=== PATIENT | female | born 1945 | race Caucasian/White ===

== ENCOUNTER 2022-06-07 09:57 | Outpatient (CLI) | payer MEDICARE, OTHER ==
--- NOTE | 2022-06-15 09:04 | Mammography Report ---
BILATERAL DIGITAL SCREENING MAMMOGRAM 3D/2D WITH EXAGGERATED CC: 06/07/2022 CLINICAL: Routine screening. Family history of breast cancer. Personal history of left breast cancer. No prior exams were available for comparison. There are scattered areas of fibroglandular density in both breasts (category b / 25%-50% glandular t issue). No significant masses, calcifications, or other findings are seen in either breast. IMPRESSION: NEGATIVE There is no mammographic evidence of malignancy. A 1 year screening mammogram is recommended. This exam was interpreted at Station ID: [id number]. NOTE: For mammograms, a report in lay terms will be sent to the patient. Approximately 15% of breast malignancies will not be visualized mammographically. In the management of a palpable breast mass, a negative mammogram must not discourage biopsy of a clinically suspicious lesion. Electronically Signed By: Gordon Carrasquillo M.D. aty/:06/15/2022 07:11:57 letter sent: No_Letter ACR BI-RADS Category 1: Negative 3341F PARENCHYMAL PATTERN: (A) - The breast(s) demonstrate(s) scattered fibroglandular densities. BI-RADS CATEGORY: (1) - 1 Mammogram [id number] 1 year screening LATERALITY: (B)
== END 2022-06-07 09:58 | disposition home or self-care (01) ==
LOC: DI.S 09:57
PROVIDERS: ATTEND Nurse Practitioner Family
DX: Z12.31 Encounter for screening mammogram for malignant neoplasm of breast (principal); Z80.3 Family history of malignant neoplasm of breast; Z85.3 Personal history of malignant neoplasm of breast

== ENCOUNTER 2022-09-11 10:40 | Emergency (ER) | payer MEDICARE, OTHER ==
[2022-09-11 11:14] LABS: BASOPHILS % (AUTO) 0.4 %; EOSINOPHILS % (AUTO) 0.4 %; HCT - HEMATOCRIT 37.7 % (37.0-47.0); HGB - HEMOGLOBIN 12.4 g/dL (12.0-16.0); LYMPHOCYTES # (AUTO) 2.4 10^3/uL (1.5-3.5); LYMPHOCYTES % (AUTO) 30.1 %; MEAN CORPUSCULAR HGB CONC 32.9 g/dL (32.0-36.0); MEAN CORPUSCULAR VOLUME 91.1 fL (81.0-99.0); MEAN PLATELET VOLUME 10.6 fL (7.9-10.8); MONOCYTES # (AUTO) 0.6 10^3/uL (0.0-1.0); MONOCYTES % (AUTO) 7.8 %; NEUTROPHILS # (AUTO) 4.8 10^3/uL (1.5-6.6); NEUTROPHILS % (AUTO) 61.2 %; PLT - PLATELET COUNT 248 10^3/uL (130-450); RED BLOOD COUNT 4.14 10^6/uL (4.20-5.40); RED CELL DISTRIBUTION WIDTH 14.8 % (12.0-15.0); WHITE BLOOD COUNT 7.9 x10^3/uL (4.8-10.8)
[2022-09-11 11:23] LABS: ALBUMIN 3.5 g/dL (3.2-5.5); ALBUMIN/GLOBULIN RATIO 0.7 (1.0-2.2); BILIRUBIN,TOTAL 0.6 mg/dL (0.2-1.0); CALCIUM 8.8 mg/dL (8.5-10.3); POTASSIUM 2.9 mmol/L (3.5-5.0); TOTAL PROTEIN 8.4 g/dL (6.7-8.2)
[2022-09-11] MEDS ORDERED: ONDANSETRON 4 MG/2 ML VIAL IVP STA (11:26)
[2022-09-11] MEDS ORDERED: HYDROmorphone 1 MG/ML CARPUJECT IVP STA (11:26)
[2022-09-11] MEDS ORDERED: SODIUM CHLORIDE 0.9% 1,000 ML IV STA (11:26)
--- NOTE | 2022-09-11 11:30 | ED Physician Documentation ---
History of Present Illness - Stated complaint Stated Complaint: RT LOWER ABD PX/NAUSEA - Chief complaint Chief Complaint: Abd Pain - Additonal information Additional information: 77-year-old female presents emergency department for evaluation of acute onset left lower quadrant abdominal pain that began at 730 this morning and woke her from sleep. It is sharp and constant. She reports that it radiates up and down her left side. She has constant stabbing proximal isms of pain. Some nausea and vomiting. She does report a history of chronic diarrhea which has been evaluated but no cause found. Nonbloody. Takes Lexapro only. No pertinent past surgical history. In the room she appears uncomfortable guarded and painful. I do note sinus rhythm on the monitor heart rate in the 60s. Normotensive. No fevers. Review of Systems Constitutional: denies: Fever Cardiac: reports: Reviewed and negative Respiratory: reports: Reviewed and negative GI: reports: Abdominal Pain, Nausea, Vomiting, Diarrhea : reports: Reviewed and negative Skin: reports: Reviewed and negative Musculoskeletal: reports: Reviewed and negative PD PAST MEDICAL HISTORY - Present Medications Home Medications: Ambulatory Orders Medication Instructions Recorded Confirmed Escitalopram Oxalate [Lexapro] 5 mg PO DAILY 09/11/22 09/11/22 Ibuprofen [Motrin] 600 mg PO Q6H PRN #30 tab 09/11/22 Potassium Bicarbonate 25 meq PO DAILY #3 tablet 09/11/22 [K-Effervescent] Tamsulosin HCl [Flomax] 0.4 mg PO DAILY #30 cap 09/11/22 oxyCODONE [Roxicodone] 5 mg PO BID PRN #10 tab 09/11/22 - Allergies Allergies/Adverse Reactions: Allergies Allergy/AdvReac Type Severity Reaction Status Date / Time codeine Allergy Unknown Verified 09/11/22 11:02 PD ED PE NORMAL - General General: Alert and oriented X 3, Well developed/nourished. No: No acute distress (Uncomfortable guarded and in pain) - Respiratory Respiratory: No respiratory distress - Abdomen Abdomen: Normal bowel sounds, Soft. No: Non tender (Focal tenderness with some guarding and rebound on the left lower quadrant of the abdomen.) - Back Back: No CVA TTP - Derm Derm: Normal color, Warm and dry, No rash - Extremities Extremities: No deformity - Neuro Neuro: Alert and oriented X 3 Eye Opening: Spontaneous Motor: Obeys Commands Verbal: Oriented GCS Score: 15 Results - Vitals Vitals: Vital Signs - 24 hr 09/11/22 09/11/22 09/11/22 10:59 12:40 12:50 Temperature 36.2 C L Heart Rate 67 70 Respiratory 30 H 24 Rate Blood Pressure 125/68 115/59 L O2 Saturation 100 85 L 100 If not protocol 2 : Oxygen Flow, liters/minute 09/11/22 13:27 Temperature Heart Rate 72 Respiratory 18 Rate Blood Pressure 101/60 O2 Saturation 99 If not protocol : Oxygen Flow, liters/minute Oxygen O2 Source Room air - Labs Labs: Laboratory Tests 09/11/22 09/11/22 09/11/22 11:07 11:07 13:09 WBC 7.9 RBC 4.14 L Hgb 12.4 Hct 37.7 MCV 91.1 MCH 30.0 MCHC 32.9 RDW 14.8 Plt Count 248 MPV 10.6 Neut # (Auto) 4.8 Lymph # (Auto) 2.4 Dickens # (Auto) 0.6 Eos # (Auto) 0.0 Baso # (Auto) 0.0 Absolute Nucleated RBC 0.00 Nucleated RBC % 0.0 Sodium 141 Potassium 2.9 L Chloride 102 Carbon Dioxide 27 Anion Gap 12.0 BUN 20 Creatinine 1.0 Estimated GFR (MDRD) 54 L Glucose 129 H Calcium 8.8 Total Bilirubin 0.6 AST 29 ALT 15 Alkaline Phosphatase 59 Total Protein 8.4 H Albumin 3.5 Globulin 4.9 H Albumin/Globulin Ratio 0.7 L Lipase 28 Urine Color LIGHT YELLOW Urine Clarity CLEAR Urine pH 6.5 Ur Specific Rosanky <=1.005 Urine Protein NEGATIVE Urine Glucose (UA) NEGATIVE Urine Ketones 15 H Urine Occult Blood TRACE-INTA Urine Nitrite NEGATIVE Urine Bilirubin NEGATIVE Urine Urobilinogen 0.2 (NORMAL) Ur Leukocyte Esterase NEGATIVE Ur Microscopic Review NOT INDICATED Urine Culture Comments NOT INDICATED - Rads (name of study) CT abd w Relevant Findings:: Final report received (Mild left hydronephrosis and subtle decreased enhancement of the left kidney suspicious for obstructive left kidney stone, definite kidney stone is not seen however possibly a stone at the left UVJ series 3 image 59. No other abnormality to explain left lower quadrant pain) PD Medical Decision Making - ED course Complexity details: reviewed results, re-evaluated patient, considered differential, d/w patient, d/w family ED course: 77-year-old female with acute left lower quadrant abdominal pain. I did obtain CBC electrolytes and UA. Most significant finding was that of mild hypokalemia with potassium of 2.9. She does have chronic and recurrent diarrhea. I suspect this is due to GI loss. Urinalysis showed no signs of infection. Subsequently CT of the abdomen was obtained to rule out renal/ureter colic as well as diverticulitis. CT scan shows some mild hydronephrosis with an obstructing left renal stone as well as likely a UVJ stone. Patient was administered initially a single dose of IV Dilaudid in the ER with minimal relief of pain. Following this I administered 15 mg of ketorolac IV with near full improvement and resolution of pain. I discussed the CT imaging findings with the patient and her daughter. We will replete the potassium with 3 days of potassium acetate taken at home. She will be started on Flomax. Recommend NSAID medication ibuprofen taken with food as well as as needed oxycodone. Recommend follow-up with Dr. Scot Smith urology. She will request referral from his clinic or Jewels arellano her PCP. The usual emergent return precautions for worsening symptoms was discussed Departure - Departure Disposition: 01 Home, Self Care Clinical Impression: Hypokalemia due to excessive gastrointestinal loss of potassium, LLQ abdominal pain, Calculus of ureterovesical junction (UVJ) Hydronephrosis Qualifiers: Hydronephrosis type: other Qualified Code(s): N13.39 - Other hydronephrosis Condition: Stable Instructions: ED Stone Renal W Colic Follow-Up: Jewels Arellano ARNP [Primary Care Provider] - Scot Smith MD [Provider Admit Priv/Credential] - Within 1 week Prescriptions: Tamsulosin HCl [Flomax] 0.4 mg PO DAILY #30 cap Potassium Bicarbonate [K-Effervescent] 25 meq PO DAILY #3 tablet Ibuprofen [Motrin] 600 mg PO Q6H PRN #30 tab PRN Reason: Pain oxyCODONE [Roxicodone] 5 mg PO BID PRN #10 tab PRN Reason: Pain >8 Comments: You are seen today in the emergency department because you developed sudden left lower quadrant abdominal pain. While here in the emergency department your labs did not show any worrisome findings with the exception of a mildly low potassium at 2.9. I have sent a prescription for some potassium bicarbonate to the [facility] in [place]. Your low potassium is most likely due to recurrent diarrhea. Please discuss this finding with your primary doctor. The CT scan shows that you have most likely a stone at the left UVJ junction. There is also a small obstructing left kidney stone that is causing a little bit of hydronephrosis. In order to help the kidney stone pass I am starting you on a medication called Flomax. Use this cautiously as it can make you dizzy. I also recommend that you drink a lot of water to help flush your kidneys and get the stones to pass. In general I recommend that you take ibuprofen 600 mg with food 2-3 times a day. For more severe pain I have written a prescription for a limited amount of oxycodone. Use this cautiously. It will make you dizzy, cause constipation and make you more prone to falls. It is important that you follow-up with urology for longer-term evaluation and management of these kidney stones. I have given you the name of Dr. Scot Smith, a [facility]rolog[facility]. You can call his office directly however they may require referral from Jewels arellano. I am prescribing a short course of narcotic pain medication for you. These are potentially dangerous and addictive medications that should be used carefully. These medications may constipate you. Take an vsam-xse-vbbyebe stool softener (docusate) twice daily with plenty of water while taking these medications. If you go 24 hours without a bowel movement, take mzxc-bub-vrhqjte miralax, per package instructions. Do not drink or drive while taking these medications. If you received narcotic or sedating medications while in the emergency department, do not drive for 24 hours. Store this medication in a safe, secure place and out of reach of children. It is a violation of federal law to give or sell this medication to another person or to use in a manner other than prescribed. The ED will not refill narcotic prescriptions, including prescriptions lost or stolen. To dispose of unwanted medications: 1. [facility] at [address] in [place] has a medication drop box. They accept prescription medications (in pill form) Tuesday through Tuesday 9:00 a.m. to 5:00 p.m. 2. [facility] accepts prescription medications (in pill form only) for disposal year round. Call for more information. 3. Contact the [facility] for the next [facility] sponsored prescription drug collection event. , [phone], or [phone]; Note that many narcotic pain relievers also contain Tylenol/acetaminophen. Please ensure that your total dose of acetaminophen from all sources does not exceed 3 g (3000 mg) per day.
[2022-09-11] MEDS ORDERED: KETOROLAC 15 MG/ML VIAL IVP STA (11:58)
[2022-09-11] MEDS ORDERED: iohexoL-300 100 ML VIAL IVP ONE (12:16)
--- NOTE | 2022-09-11 12:55 | CT Report ---
PROCEDURE: ABDOMEN/PELVIS W INDICATIONS: LLQ abd pain TECHNIQUE: After the administration of contrast, 5 mm thick sections acquired from the diaphragms to the symphys is. 5 mm thick coronal and sagittal reformats were acquired. For radiation dose reduction, the foll owing was used: automated exposure control, adjustment of mA and/or kV according to patient size. COMPARISON: None FINDINGS: Image quality: Excellent. Lung bases and heart: Unremarkable. Liver: No solid mass. 2 areas of flash arterial enhancement are likely THADs. Gallbladder and biliary tree: The gallbladder is normal. Spleen: No splenomegaly. Pancreas: No pancreatic ductal dilation. Adrenals: No adrenal nodule. Kidneys and ureters: The right kidney is normal. The left kidney demonstrates mild hydronephrosis. Th e ureter is difficult to follow due to the lack of intra-abdominal fat. There is a possible stone wit hin the distal ureter series 3 image 59, however multiple phleboliths are also identified. Please cor relate with symptoms and urinalysis. CT urogram could be performed if further delineation is needed. Bowel and peritoneum: No bowel distension. No pathologic free fluid. No diverticuli are identified. N o evidence of diverticulitis. Lymph nodes: No central or retroperitoneal adenopathy. Vessels: No infrarenal aortic aneurysm. PELVIS Reproductive organs: Unremarkable. Bladder: No abnormal wall thickening, accounting for underdistension. Pelvic lymph nodes: No pelvic adenopathy by size criteria. Bones: No aggressive osseous abnormality. Other: No significant ventral or inguinal hernia. IMPRESSION: 1. Mild left hydronephrosis and subtle decreased enhancement of the left kidney suspicious for obstru ctive left kidney stone, a definite kidney stone is not seen however possibly a stone at the left UVJ series 3 image 59. 2. No other abnormality to explain left lower quadrant pain. Reviewed by: Raffy Barry on 09/11/2022 11:53 AM FRANKIE Approved by: Raffy Barry on 09/11/2022 11:53 AM FRANKIE Station ID: [id number]
[2022-09-11] MEDS ORDERED: TAMSULOSIN 0.4 MG CAPSULE PO STA (12:58)
[2022-09-11 13:20] LABS: BILIRUBIN,URINE NEGATIVE (NEGATIVE); GLUCOSE, URINE (UA) NEGATIVE (NEGATIVE); KETONES,URINE (UA) 15 mg/dL (NEGATIVE); LEUKOCYTE ESTERASE, URINE NEGATIVE (NEGATIVE); NITRITE,URINE NEGATIVE (NEGATIVE); OCCULT BLOOD,URINE TRACE-INTA (NEGATIVE); PH,URINE 6.5 PH (5.0-7.5); PROTEIN,URINE NEGATIVE (NEGATIVE); UROBILINOGEN,URINE 0.2 (NORMAL) E.U./dL (NORMAL)
[2022-09-11 13:22] LABS: CLARITY,URINE CLEAR (CLEAR)
[2022-09-11 13:32] VITALS: BP 101/60
== END 2022-09-11 13:59 | disposition home or self-care (01) ==
LOC: ED 10:40
DX: N13.2 Hydronephrosis with renal and ureteral calculous obstruction (principal); E87.6 Hypokalemia
CPT/HCPCS: 36415; 74177; 80053; 81003; 83690; 85025; 96374; 96375; 99284; A9270; J1170; Q9967; 81001; 87086

== ENCOUNTER 2022-12-13 09:45 | Outpatient (CLI) | payer MEDICARE, OTHER ==
--- NOTE | 2022-12-13 11:25 | DEXA Report ---
PROCEDURE: Dexa Spine and/or Hip INDICATIONS: OSTEOPOROSIS TECHNIQUE: Dual energy x-ray absorptiometry (DXA) was performed on a [employer]ia System. Regions measur ed are the AP Spine, femoral neck, and if needed forearm. COMPARISON: None FINDINGS: Lumbar Spine: Bone Mineral Density 0.883 g/cm/cm,T score -2.5. Left Femoral Neck: Bone Mineral Density 0.639 g/cm/cm, T score -2.9. Left Hip: Bone Mineral Density 0.644 g/cm/cm,T score -2.9. (T score greater or equal to -1.0: NORMAL) (T score from -1.1 to -2.4: OSTEOPENIA) (T score less than or equal to -2.5 to: OSTEOPOROSIS) Impression: By WHO criteria, this patient has osteoporosis. Patients with diagnosis of osteoporosis or osteopenia should have regular bone mineral density assess ment. For those eligible for Medicare, routine testing is allowed once every 2 years. Testing frequ ency can be increased for patients who have rapidly progressing disease or for those who are receivin g medical therapy to restore bone mass. Reviewed by: Reynaldo Gooden on 12/13/2022 11:24 AM PDT Approved by: Reynaldo Gooden on 12/13/2022 11:24 AM PDT Station ID: [id number]
== END 2022-12-13 09:46 | disposition home or self-care (01) ==
LOC: DI 09:45
PROVIDERS: ATTEND Nurse Practitioner Family
DX: M81.0 Age-related osteoporosis without current pathological fracture (principal)

== ENCOUNTER 2023-01-19 08:40 | Outpatient (CLI) | payer MEDICARE, OTHER ==
--- NOTE | 2023-01-19 14:45 | CT Report ---
PROCEDURE: ABDOMEN/PELVIS WO INDICATIONS: FLANK PAIN TECHNIQUE: A CT scan of the abdomen and pelvis was performed without the use of intravenous contrast. Images we re recorded and evaluated at appropriate window settings. Reformats: coronal and sagittal. For radiat ion dose reduction, the following was used: automated exposure control, adjustment of mA and/or kV ac cording to patient size. COMPARISON: CT abdomen and pelvis 09/11/2022 FINDINGS: Image quality: Excellent. Lung bases and heart: Unremarkable. Liver: No solid mass. Gallbladder and biliary tree: No radiopaque stones or wall thickening. No biliary dilation. Spleen: No splenomegaly. Pancreas: No pancreatic ductal dilation. Adrenals: No adrenal nodule. Kidneys and ureters: Left superior pole 2 mm nonobstructing calculus. No hydronephrosis. No renal cys tic lesion which requires follow up. No solid mass. Bowel and peritoneum: No bowel distension. No pathologic free fluid. Lymph nodes: No central or retroperitoneal adenopathy. Vessels: No infrarenal aortic aneurysm. Aortobiiliac atherosclerotic calcifications. PELVIS Reproductive organs: Unremarkable. Bladder: No wall thickness, accounting for underdistention. Pelvic lymph nodes: No pelvic adenopathy by size criteria. Bones: No acute or suspicious osseous abnormality. Mild degenerative changes of the spine. Dextroconv ex lumbar scoliosis. Other: No significant ventral or inguinal hernia. IMPRESSION: Nonobstructing left superior pole 2 mm calculus. No hydroureteronephrosis. Reviewed by: Radha Mckeon MD on 01/19/2023 2:43 PM PST Approved by: Radha Mckeon MD on 01/19/2023 2:43 PM PST Station ID: [id number]
== END 2023-01-19 08:41 | disposition home or self-care (01) ==
LOC: DI 08:40
PROVIDERS: ATTEND Nurse Practitioner Family
DX: R10.9 Unspecified abdominal pain (principal); N20.0 Calculus of kidney